=== PATIENT | male | born 1990 | race Hispanic/Latino ===

== ENCOUNTER 2023-10-12 23:34 | Emergency (ER) | payer OTHER ==
[~2023-10-12] VITALS: Ht 180.3 cm; Wt 98.4 kg
[2023-10-13] MEDS ORDERED: 0.9%NACL 1000ML 1,000 ML IV ONE
[2023-10-13 00:06] LABS: BASOPHILS # (AUTO) 0.03 K/uL (0.00-0.20); BASOPHILS % (AUTO) 0.4 % (0.0-5.0); EOSINOPHILS # (AUTO) 0.19 K/uL (0.00-0.70); EOSINOPHILS % (AUTO) 2.8 % (0.0-8.0); HEMATOCRIT 45.3 % (42-54); IMMATURE GRANULOCYTE ABSOLUTE 0.02 K/uL (0-1); LYMPHOCYTES # (AUTO) 2.9 K/uL (1.0-4.8); LYMPHOCYTES % (AUTO) 41.9 % (21.0-51.0); MEAN CORPUSCULAR HEMOGLOBIN 31.8 pg (27.0-33.0); MEAN CORPUSCULAR HGB CONC 33.1 g/dL (32.0-36.0); MEAN CORPUSCULAR VOLUME 96.2 fL (79-99); MONOCYTES # (AUTO) 0.6 K/uL (0.1-1.0); MONOCYTES % (AUTO) 8.4 % (3.0-13.0); NEUTROPHILS # (AUTO) 3.2 K/uL (1.8-7.7); NEUTROPHILS % (AUTO) 46.2 % (40.0-77.0); PLATELET COUNT (AUTO) 181 K/uL (130-400); RED BLOOD CELL COUNT(AUTO) 4.71 MIL/uL (4.50-6.20); RED CELL DISTRIBUTION WIDTH 13.2 % (11.0-15.5); WHITE BLOOD COUNT (AUTO) 6.9 K/uL (4.8-10.8)
[2023-10-13 00:08] LABS: APPEARANCE,URINE CLEAR (CLEAR); BILIRUBIN,URINE NEGATIVE (NEGATIVE); COLOR,URINE YELLOW (YELLOW); GLUCOSE, URINE (UA) NEGATIVE (NEGATIVE); KETONES,URINE NEGATIVE (NEGATIVE); LEUKOCYTE ESTERASE ,URINE NEGATIVE Leu/uL (NEGATIVE); NITRATE,URINE NEGATIVE (NEGATIVE); OCCULT BLOOD,URINE SMALL (NEGATIVE); PH,URINE 5.5 (5.0-8.0); PROTEIN,URINE 10 mg/dL (NEGATIVE)
[2023-10-13 00:10] LABS: ADD UA MICROSCOPIC YES
[2023-10-13 00:12] LABS: BACTERIA,URINE RARE /HPF (None Seen); MUCUS,URINE MANY LPF (None Seen); RBC,URINE 26-50 /HPF (0-1); SQUAMOUS EPITHELIAL CELL,UR RARE /HPF (0-2); UNCLASSIFIED CRYSTAL 3 /HPF (None Seen)
[2023-10-13 00:13] LABS: CREATININE 0.6 mg/dL (0.5-1.5); POTASSIUM 3.8 mmol/L (3.5-5.1)
[2023-10-13 00:17] LABS: ALBUMIN 3.3 g/dL (3.5-5.0); BILIRUBIN,TOTAL 0.9 mg/dL (0.2-1.0); TOTAL PROTEIN, SERUM 7.7 g/dL (6.0-8.3)
[2023-10-13] MEDS ORDERED: MORPHINE 2 MG SYG IVP ONE (00:30)
[2023-10-13] MEDS ORDERED: ONDANSETRON 4MG INJ IVP ONE (00:30)
[2023-10-13] MEDS ORDERED: IOHEXOL-350 75 ML VIAL IV ONE (00:30)
[2023-10-13 01:36] VITALS: BP 123/65; PULSE 59; RESP 17; O2SAT 98
== END 2023-10-13 02:10 | disposition home or self-care (01) ==
LOC: EDH 23:34
DX: K42.9 Umbilical hernia without obstruction or gangrene (principal); Z98.890 Other specified postprocedural states
CPT/HCPCS: 99285; 74177; 80053; 83690; 85025; 81001; 36415; 96374; 96375; J2270; J2405; Q9967

== ENCOUNTER 2025-05-01 16:12 | Emergency (ER) | payer SELFPAY ==
[~2025-05-01] VITALS: Ht 177.8 cm; Wt 90.7 kg
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
[2025-05-01 17:17] LABS: IMMATURE GRANULOCYTE ABSOLUTE 0.02 K/uL (0-1); NUCLEATED RED BLOOD CELLS 0.0 % (0.0-0.19); PLATELET COUNT (AUTO) 169 K/uL (130-400); RED BLOOD CELL COUNT(AUTO) 4.73 MIL/uL (4.50-6.20); RED CELL DISTRIBUTION WIDTH 13.2 % (11.0-15.5); WHITE BLOOD COUNT (AUTO) 8.3 K/uL (4.8-10.8)
[2025-05-01 17:29] LABS: CREATININE 0.6 mg/dL (0.5-1.3); GLOMERULAR FILTR. RATE CALC 132.0 mL/min (>90); GLUCOSE,RANDOM 115.0 mg/dL (70-105); SODIUM SERUM 144.0 mmol/L (136-145); UREA NITROGEN, BLOOD 9.0 mg/dL (7-18)
[2025-05-01] MEDS ORDERED: IOHEXOL 350 MG/ML 100ML INFUS..BTL IV ONE (17:58)
--- NOTE | 2025-05-01 18:26 | HMCIMG ---
EXAM: CR left Clavicle Complete, 2 View. CLINICAL HISTORY: fall COMPARISON: None provided. FINDINGS: Mildly displaced mid left clavicular fracture. The sternoclavicular and acromioclavicular joints remain anatomically aligned. IMPRESSION: 1. Mildly displaced mid left clavicular fracture. /[place]
--- NOTE | 2025-05-01 18:27 | HMCIMG ---
EXAM: CR left Knee, 3 View. CLINICAL HISTORY: fall COMPARISON: None provided. FINDINGS: BONES: No acute fracture or aggressive appearing osseous lesion. JOINTS: The joint spaces show no significant degenerative disease. There is no joint effusion appreciated. SOFT TISSUES: The soft tissues are unremarkable. IMPRESSION: No acute osseous pathology evident. /[place]
--- NOTE | 2025-05-01 19:37 | HMCIMG ---
EXAMINATION: CT Abdomen and Pelvis with IV contrast CLINICAL HISTORY: Patient presents after a fall. COMPARISON: CT abdomen and pelvis dated October 13, 2023. CONTRAST: Administered intravenously. TECHNIQUE: Axial computed tomography images of the abdomen and pelvis with intravenous contrast. Sagittal and coronal reformatted images submitted for interpretation. FINDINGS: LUNG BASES: The lung bases are clear. No pleural effusions are seen. LIVER: The liver is enlarged, measuring 18.8 cm in craniocaudal span. GALLBLADDER AND BILE DUCTS: The gallbladder is within normal limits. No radioopaque gallstones. No biliary ductal dilatation. PANCREAS: The pancreas is unremarkable. SPLEEN: The spleen is unremarkable. ADRENAL GLANDS: The adrenal glands are unremarkable. KIDNEYS, URETERS, AND BLADDER: The kidneys are within normal limits. New left vesicoureteric junction calculus measuring approximately 1.4 x 0.9 cm. No hydronephrosis or hydroureter. STOMACH AND BOWEL: Postsurgical changes along the body of the stomach. Moderate amount of fecal content in the colon, concerning for constipation. Fecal content in the distal ileal loops, concerning for ileocecal valve incompetence or chronic constipation. No evidence of bowel obstruction, enteritis, or colitis. APPENDIX: No evidence of acute appendicitis on CT examination. PERITONEUM: No free fluid. No free air. LYMPH NODES: No lymphadenopathy is evident. REPRODUCTIVE: The prostate gland and seminal vesicles are normal. VASCULATURE: No evidence of abdominal aortic aneurysm. BONES: Minimal reduction in the T11 vertebral body height. No aggressive appearing osseous lesion. No acute osseous pathology. IMPRESSION: New left vesicoureteric junction calculus measuring approximately 1.4 x 0.9 cm. Fecal content in distal ileal loops, concerning for ileocecal valve incompetence or chronic constipation. Moderate colonic fecal retention, concerning for constipation. Hepatomegaly with liver measuring 18.8 cm in craniocaudal span. Postsurgical changes along the body of the stomach. Minimal reduction in T11 vertebral body height, presumed chronic. /[place]
[2025-05-01] MEDS ORDERED: KETO10 PO (20:07)
[2025-05-01 20:15] VITALS: BP 155/79; PULSE 60; RESP 18; TEMP 98.5; O2SAT 99
== END 2025-05-01 20:16 | disposition home or self-care (01) ==
LOC: EDH 16:12
DX: S42.002A Fracture of unspecified part of left clavicle, initial encounter for closed fracture (principal); F17.200 Nicotine dependence, unspecified, uncomplicated; W18.39XA Other fall on same level, initial encounter; Y93.89 Activity, other specified; Y92.89 Other specified places as the place of occurrence of the external cause; Y99.8 Other external cause status
CPT/HCPCS: 99285; 74177; 96374; 80048; 85025; 36415; 73000; 73562; J1885; Q9967